=== PATIENT | male | born 1980 | race Caucasian/White ===

== ENCOUNTER 2016-04-20 10:04 | Outpatient (CLI) | payer MEDICAID | END 2016-04-20 10:05 | DX: Z13.9 Encounter for screening, unspecified (principal) ==

== ENCOUNTER 2016-11-15 16:44 | Emergency (ER) | payer SELFPAY ==
--- NOTE | 2016-11-15 19:22 | ED Physician Documentation ---
PD HPI MHE - Stated complaint Stated Complaint: ANXIETY - Chief complaint Chief Complaint: MHE - History obtained from History obtained from: Patient - History of Present Illness Primary symptom: Anxiety. No: Suicidal ideation, Psychosis, Depression, Aggressive behavior Timing - onset: Today (awoke from nap and got anxious. This continues. Has had anxiety in the past and usually it will fade with just resting. Consider use of anti-anxiety med.) Contributing factors: Money. 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.) PD PAST MEDICAL HISTORY - Past Medical History Cardiovascular: None Respiratory: None Neuro: None Endocrine/Autoimmune: None GI: GERD : None HEENT: None Psych: Anxiety Musculoskeletal: None Derm: None - Past Surgical History Past Surgical History: Yes General: Appendectomy - Present Medications Home Medications: Ambulatory Orders Medication Instructions Recorded Confirmed Lorazepam [Ativan] 1 mg PO BID #20 tablet 11/15/16 Sertraline HCl [Zoloft] 100 mg PO DAILY #30 tablet 11/15/16 - Allergies Allergies/Adverse Reactions: Allergies Allergy/AdvReac Type Severity Reaction Status Date / Time No Known Drug Allergies Allergy Verified 04/17/13 20:45 - Social History Does the pt smoke?: Yes Smoking Status: Current every day smoker Does the pt drink ETOH?: Yes Does the pt have substance abuse?: No Substance Use and Type: Marijuana - Immunizations Immunizations are current?: Yes - POLST Patient has POLST: No PD ED PE NORMAL - Vitals Vital signs reviewed: Yes - General General: Alert and oriented X 3, No acute distress, Well developed/nourished - HEENT HEENT: Atraumatic, Moist mucous membranes, Pharynx benign - Neck Neck: Supple, no meningeal sign, No adenopathy, No JVD - Cardiac Cardiac: RRR, No murmur - Respiratory Respiratory: No respiratory distress, Clear bilaterally - Abdomen Abdomen: Normal bowel sounds, Soft, Non tender, Non distended - Derm Derm: Normal color, Warm and dry - Extremities Extremities: No deformity, No tenderness to palpate, Normal ROM s pain, No edema , No calf tenderness / cord - Neuro Neuro: Alert and oriented X 3, No motor deficit, Normal speech Results - Vitals Vitals: Oxygen O2 Source Room air - Labs Labs: Laboratory Tests 11/15/16 11/15/16 11/15/16 19:44 19:44 19:44 WBC 12.3 H RBC 5.35 Hgb 15.4 Hct 45.5 MCV 85.0 MCH 28.8 MCHC 33.9 RDW 13.2 Plt Count 207 MPV 8.0 Neut # 8.9 H Lymph # 2.6 Hunt # 0.7 Eos # 0.0 Baso # 0.1 Absolute Nucleated RBC 0.01 Nucleated RBC % 0.0 Sodium 137 Potassium 3.7 Chloride 104 Carbon Dioxide 23 Anion Gap 10.0 BUN 12 Creatinine 0.9 Estimated GFR (MDRD) 97 Glucose 94 Calcium 9.1 Total Bilirubin 0.7 AST 16 ALT 16 Alkaline Phosphatase 83 Total Protein 7.1 Albumin 4.4 Globulin 2.7 Albumin/Globulin Ratio 1.6 Lipase 21 L TSH 2.87 PD MEDICAL DECISION MAKING - ED course Complexity details: reviewed results, considered differential, d/w patient Departure - Departure Disposition: 01 Home, Self Care Clinical Impression: Anxiety as acute reaction to exceptional stress Condition: Stable Record reviewed to determine appropriate education?: Yes Instructions: ED Stress React Follow-Up: [facility] [Provider Group] [facility] [Provider Group] Prescriptions: Lorazepam [Ativan] 1 mg PO BID #20 tablet Sertraline HCl [Zoloft] 100 mg PO DAILY #30 tablet Comments: Ativan twice daily initially to help with anxiety. This is not the long-term treatment but a bridge until the longer medications can help. Start Zoloft half a tablet daily for a week and then go to a whole tablet. We will presume to use this for 3-6 months. As a longer term treatment for the anxiety. However obtain an appointment with the local provider such as a [facility] He can also get psychological counseling to help with feedback and stress reduction techniques through [facility] or [facility] mental [facility] clinic in [place]. Discharge Date/Time: 11/15/16 21:08
[2016-11-15] MEDS ORDERED: LORazepam 0.5 MG TABLET PO STA (19:36)
[2016-11-15] MEDS ORDERED: LORazepam 0.5 MG TABLET ONE (19:43)
[2016-11-15 19:51] LABS: BASOPHILS # (AUTO) 0.1 10^3/uL (0.0-0.1); BASOPHILS % (AUTO) 0.5 %; EOSINOPHILS % (AUTO) 0.4 %; HCT - HEMATOCRIT 45.5 % (42.0-52.0); HGB - HEMOGLOBIN 15.4 g/dL (14.0-18.0); LYMPHOCYTES # (AUTO) 2.6 10^3/uL (1.5-3.5); LYMPHOCYTES % (AUTO) 20.9 %; MEAN CORPUSCULAR HEMOGLOBIN 28.8 pg (27.0-31.0); MEAN CORPUSCULAR HGB CONC 33.9 g/dL (32.0-36.0); MONOCYTES # (AUTO) 0.7 10^3/uL (0.0-1.0); MONOCYTES % (AUTO) 5.9 %; NEUTROPHILS # (AUTO) 8.9 10^3/uL (1.5-6.6); NEUTROPHILS % (AUTO) 72.3 %; RED BLOOD COUNT 5.35 10^6/uL (4.70-6.10); RED CELL DISTRIBUTION WIDTH 13.2 % (12.0-15.0); UNCORRECTED WHITE BLOOD COUNT 12.3 x10^3/uL; WHITE BLOOD COUNT 12.3 x10^3/uL (4.8-10.8)
[2016-11-15 20:01] LABS: ALBUMIN/GLOBULIN RATIO 1.6 (1.0-2.2); BILIRUBIN,TOTAL 0.7 mg/dL (0.2-1.0); CALCIUM 9.1 mg/dL (8.5-10.3); CREATININE 0.9 mg/dL (0.6-1.2); POTASSIUM 3.7 mmol/L (3.5-5.0); TOTAL PROTEIN 7.1 g/dL (6.7-8.2)
[2016-11-15 21:08] VITALS: BP 135/78
== END 2016-11-15 21:08 | disposition home or self-care (01) ==
LOC: ED 16:44
DX: F41.8 Other specified anxiety disorders (principal); F43.0 Acute stress reaction; K21.9 Gastro-esophageal reflux disease without esophagitis; F17.200 Nicotine dependence, unspecified, uncomplicated
CPT/HCPCS: 36415; 80053; 83690; 84443; 85025; 93005; 99283; A9270

== ENCOUNTER 2017-08-22 15:39 | Emergency (ER) | payer OTHER, MEDICAID ==
[2017-08-22 15:45] VITALS: BP 148/106
[2017-08-22] MEDS ORDERED: BUFFERED LIDOCAINE 10 ML SYRINGE SUBQ STA ×2 (16:41)
--- NOTE | 2017-08-22 16:44 | ED Physician Documentation ---
PD HPI UPPER EXT INJURY - Stated complaint Stated Complaint: L THUMB LAC - Chief complaint Chief Complaint: Laceration - History obtained from History obtained from: Patient - History of Present Illness Location: Left, Finger (thumb) Type of injury: Laceration Where injury occurred: Work Timing - onset: Today Timing - duration: Hours Timing - details: Abrupt onset, Still present Improved by: Rest, Immobilization Worsened by: Moving, Palpating Associated symptoms: No: Weakness, Numbness Contributing factors: No: Anticoagulated Similar symptoms before: Diagnosis (laceration) Recently seen: Not recently seen - Additonal information Additional information: 37-year-old male was getting ready to cut a bevel in an angle iron and pushed it up against the machine and it slipped out of his hand and sliced his left thumb. Review of Systems Constitutional: denies: Fever Eyes: denies: Decreased vision Ears: denies: Ear pain Nose: denies: Congestion Throat: denies: Sore throat Respiratory: denies: Cough GI: denies: Vomiting Skin: reports: Laceration (s) Musculoskeletal: reports: Extremity pain. denies: Neck pain, Back pain PD PAST MEDICAL HISTORY - Past Medical History Cardiovascular: None Respiratory: None Endocrine/Autoimmune: None GI: GERD : None HEENT: None Psych: Anxiety Musculoskeletal: None Derm: None - Past Surgical History Past Surgical History: Yes General: Appendectomy - Present Medications Home Medications: Ambulatory Orders Medication Instructions Recorded Confirmed Citalopram [CeleXA] 08/22/17 - Allergies Allergies/Adverse Reactions: Allergies Allergy/AdvReac Type Severity Reaction Status Date / Time No Known Drug Allergies Allergy Verified 08/22/17 15:45 - Social History Does the pt smoke?: Yes Smoking Status: Current every day smoker Does the pt drink ETOH?: Yes Does the pt have substance abuse?: No - Immunizations Immunizations are current?: Yes - POLST Patient has POLST: No PD ED PE NORMAL - Vitals Vital signs reviewed: Yes (hypertensive ) - General General: Alert and oriented X 3, No acute distress, Well developed/nourished - HEENT HEENT: Atraumatic, PERRL, EOMI - Neck Neck: Supple, no meningeal sign - Respiratory Respiratory: No respiratory distress - Derm Derm: Normal color, Warm and dry, No rash - Extremities Extremities: No deformity, No edema, Other (over the ulnar aspect of the left thumb there is a 3cm laceration from just proximal to the IP joint to the cuticle of the thumbnail. The nail is not involved an the distal n/v is intact and there is full ROM of each joint. ) - Neuro Neuro: Alert and oriented X 3, No motor deficit, No sensory deficit, Normal speech Eye Opening: Spontaneous Motor: Obeys Commands Verbal: Oriented GCS Score: 15 - Psych Psych: Normal mood, Normal affect Results - Vitals Vitals: Vital Signs - 24 hr 08/22/17 15:42 Temperature 36.4 C L Heart Rate 88 Respiratory 20 Rate Blood Pressure 148/106 H O2 Saturation 97 Oxygen O2 Source Room air Procedures - Laceration (location) left thumb Length in cm: 3 Wound type: Irregular, Flap, Clean Neurovascular status: Sensory intact, Motor intact, Vascular intact Anesthesia: Lidocaine 1%, With bicarb Wound Preparation: Hibiclens, Irrigated copiously NS, Wound explored, To the base Skin layer closure: Nylon, Interrupted, Size #-0 - enter number (4-0) Other: Patient tolerated well, No complications, Neurovascular intact, Dressing applied, Tetanus UTD PD MEDICAL DECISION MAKING - ED course Complexity details: re-evaluated patient, considered differential, d/w patient ED course: 37-year-old male with a laceration to the left thumb has good range of motion with the joint and has some macerated tissue with this laceration. This is numbed cleansed and sutured. - Sepsis Event Vital Signs: Vital Signs - 24 hr 08/22/17 15:42 Temperature 36.4 C L Heart Rate 88 Respiratory 20 Rate Blood Pressure 148/106 H O2 Saturation 97 Oxygen O2 Source Room air Departure - Departure Disposition: 01 Home, Self Care Clinical Impression: Thumb laceration Qualifiers: Encounter type: initial encounter Damage to nail status: without damage Foreign body presence: without foreign body Laterality: left Qualified Code(s): S61.012A - Laceration without foreign body of left thumb without damage to nail , initial encounter Condition: Stable Instructions: ED Laceration Hand Follow-Up: [facility] [Provider Group] Comments: sutures should be removed in 10 days Forms: Activity restrictions
== END 2017-08-22 17:15 | disposition home or self-care (01) ==
LOC: ED 15:39
DX: S61.012A Laceration without foreign body of left thumb without damage to nail, initial encounter (principal); W26.8XXA Contact with other sharp object(s), not elsewhere classified, initial encounter; Y92.69 Other specified industrial and construction area as the place of occurrence of the external cause; Y99.0 Civilian activity done for income or pay; F17.200 Nicotine dependence, unspecified, uncomplicated; R03.0 Elevated blood-pressure reading, without diagnosis of hypertension
CPT/HCPCS: 1040M; 12002; 99282; 99283

== ENCOUNTER 2021-12-12 12:56 | Emergency (ER) | payer MEDICAID ==
[2021-12-12 13:03] VITALS: BP 148/90
[2021-12-12] MEDS ORDERED: cefTRIAXone 1 GM VIAL IM STA (13:09)
[2021-12-12] MEDS ORDERED: LIDOCAINE 1% 2 ML VIAL MC ONE (13:09)
--- NOTE | 2021-12-12 13:13 | ED Physician Documentation ---
History of Present Illness - Stated complaint Stated Complaint: RT SIDE FACE SWELLING - Chief complaint Chief Complaint: Heent - History obtained from History obtained from: Patient - History of Present Illness Timing: Today Pain level max: 6 Pain level now: 6 - Additonal information Additional information: Patient is a 41-year-old male who presents to the emergency department with right upper dental pain. He states is been ongoing for several weeks. He is scheduled to have a tooth extraction in 10 days. No fevers. No chills. Noted swelling to the face last night and this morning. Better with Motrin, worse with eating and drinking. No difficulty speaking or swallowing. Review of Systems Constitutional: denies: Fever, Chills GI: denies: Vomiting, Diarrhea Skin: denies: Rash PD PAST MEDICAL HISTORY - Past Medical History Cardiovascular: None Respiratory: None Neuro: None Endocrine/Autoimmune: None GI: GERD : None HEENT: None Psych: Anxiety Musculoskeletal: None Derm: None - Past Surgical History Past Surgical History: Yes General: Appendectomy - Present Medications Home Medications: Ambulatory Orders Medication Instructions Recorded Confirmed clindamycin HCL [Cleocin HCl] 300 mg PO Q6H #40 cap 12/12/21 - Allergies Allergies/Adverse Reactions: Allergies Allergy/AdvReac Type Severity Reaction Status Date / Time dextromethorphan AdvReac Unknown Verified 12/12/21 13:04 - Social History Does the pt smoke?: Yes Smoking Status: Current every day smoker Does the pt drink ETOH?: Yes Does the pt have substance abuse?: No - Immunizations Immunizations are current?: Yes - POLST Patient has POLST: No PD ED PE NORMAL - Vitals Vital signs reviewed: Yes - General General: Alert and oriented X 3, No acute distress, Well developed/nourished - HEENT HEENT: PERRL, Moist mucous membranes, Other (poor dentition, There are multiple dental caries. No drainable abscess. Normal phonation. No trismus. There is mild right upper facial swelling.) - Cardiac Cardiac: RRR, No murmur - Respiratory Respiratory: No respiratory distress, Clear bilaterally - Derm Derm: Warm and dry - Neuro Neuro: Alert and oriented X 3 - Psych Psych: Normal mood, Normal affect Results - Vitals Vitals: Vital Signs - 24 hr 12/12/21 13:02 Temperature 36.8 C Heart Rate 80 Respiratory 14 Rate Blood Pressure 148/90 H O2 Saturation 98 Oxygen O2 Source Room air PD MEDICAL DECISION MAKING - ED course Complexity details: reviewed results, re-evaluated patient, considered differential, d/w patient ED course: 41-year-old male with dental caries leading to mild facial cellulitis. We will start on antibiotics and have him follow-up with his dentist on Tuesday. [place] the patient was given a dose of intramuscular Rocephin here in case the pharmacies are having issues filling prescriptions today. Patient declines anything for pain. Patient counseled regarding signs and symptoms for which I believe and urgent re-evaluation would be necessary. Patient with good understanding of and agreement to plan and is comfortable going home at this time This document was made in part using voice recognition software. While efforts are made to proofread this document, sound alike and grammatical errors may occur. Departure - Departure Disposition: 01 Home, Self Care Clinical Impression: Dental caries, Facial cellulitis Condition: Good Instructions: ED Tooth Pain, ED Cellulitis Facial Follow-Up: your,doctor on Tuesday [Other] Prescriptions: clindamycin HCL [Cleocin HCl] 300 mg PO Q6H #40 cap Comments: Your prescriptions were sent to [facility] in [place]. Please take all antibiotics until gone. Please follow-up with your dentist for further care. Please return if you worsen.
== END 2021-12-12 13:42 | disposition home or self-care (01) ==
LOC: ED 12:56
DX: K02.9 Dental caries, unspecified (principal); L03.211 Cellulitis of face; F17.200 Nicotine dependence, unspecified, uncomplicated
CPT/HCPCS: 96372; 99283; 99284

== ENCOUNTER 2022-07-14 13:31 | Emergency (ER) | payer MEDICAID ==
[2022-07-14 13:42] VITALS: BP 142/81
--- NOTE | 2022-07-14 14:39 | ED Physician Documentation ---
PD HPI HEENT - Stated complaint Stated Complaint: CONGESTION,EAR PRESSURE - Chief complaint Chief Complaint: Heent - History obtained from History obtained from: Patient (About a weeks worth of bilateral ear pressure, right greater than left with some congestion as well. No fevers.) PD PAST MEDICAL HISTORY - Past Medical History Cardiovascular: None Respiratory: None Neuro: None Endocrine/Autoimmune: None GI: GERD : None HEENT: None Psych: Anxiety Musculoskeletal: None Derm: None - Past Surgical History Past Surgical History: Yes General: Appendectomy - Present Medications Home Medications: Ambulatory Orders Medication Instructions Recorded Confirmed Amox/Clav 875/125 [Augmentin] 1 each PO Q12H #20 tablet 07/14/22 - Allergies Allergies/Adverse Reactions: Allergies Allergy/AdvReac Type Severity Reaction Status Date / Time dextromethorphan AdvReac Unknown Verified 07/14/22 13:41 - Social History Does the pt smoke?: Yes Smoking Status: Current every day smoker Does the pt drink ETOH?: Yes Does the pt have substance abuse?: No - Immunizations Immunizations are current?: Yes - POLST Patient has POLST: No PD ED PE NORMAL - Vitals Vital signs reviewed: Yes - General General: Alert and oriented X 3, No acute distress - HEENT HEENT: Pharynx benign, Other (Bilateral otitis media) - Neck Neck: Supple, no meningeal sign, No bony TTP - Cardiac Cardiac: RRR, No murmur - Respiratory Respiratory: No respiratory distress, Clear bilaterally - Abdomen Abdomen: Non tender - Neuro Neuro: Alert and oriented X 3, Normal speech Results - Vitals Vitals: Vital Signs - 24 hr 07/14/22 13:36 Temperature 36.5 C Heart Rate 91 Respiratory 19 Rate Blood Pressure 142/81 H O2 Saturation 99 Oxygen O2 Source Room air Departure - Departure Disposition: Home, Self Care Clinical Impression: Bilateral otitis media Condition: Good Record reviewed to determine appropriate education?: Yes Instructions: ED Otitis Media Acute Adult Prescriptions: Amox/Clav 875/125 [Augmentin] 1 each PO Q12H #20 tablet Comments: I sent your prescription electronically to [facility] in [place]. Follow-up with your doctor in a week for recheck. Return for new or worsening symptoms.
== END 2022-07-14 14:45 | disposition home or self-care (01) ==
LOC: ED 13:31
DX: H66.93 Otitis media, unspecified, bilateral (principal); F17.200 Nicotine dependence, unspecified, uncomplicated
CPT/HCPCS: 99282; 99283

== ENCOUNTER 2023-08-10 11:47 | Emergency (ER) | payer BC, MEDICAID ==
[2023-08-10 12:36] LABS: BASOPHILS % (AUTO) 0.3 %; EOSINOPHILS # (AUTO) 0.1 10^3/uL (0.0-0.7); EOSINOPHILS % (AUTO) 0.8 %; HCT - HEMATOCRIT 46.2 % (42.0-52.0); HGB - HEMOGLOBIN 15.3 g/dL (14.0-18.0); LYMPHOCYTES # (AUTO) 1.4 10^3/uL (1.5-3.5); LYMPHOCYTES % (AUTO) 23.9 %; MEAN CORPUSCULAR HGB CONC 33.1 g/dL (32.0-36.0); MEAN CORPUSCULAR VOLUME 84.6 fL (80.0-94.0); MEAN PLATELET VOLUME 9.9 fL (7.4-11.4); MONOCYTES # (AUTO) 0.4 10^3/uL (0.0-1.0); MONOCYTES % (AUTO) 6.7 %; NEUTROPHILS % (AUTO) 68.1 %; PLT - PLATELET COUNT 225 10^3/uL (130-450); RED BLOOD COUNT 5.46 10^6/uL (4.70-6.10); RED CELL DISTRIBUTION WIDTH 11.9 % (12.0-15.0); WHITE BLOOD COUNT 5.9 x10^3/uL (4.8-10.8)
--- NOTE | 2023-08-10 12:54 | XRAY Report ---
PROCEDURE: Chest 1V INDICATIONS: Chest pain TECHNIQUE: One view of the chest was acquired. COMPARISON: None. FINDINGS: Surgical changes and devices: None. Lungs and pleura: No pleural effusions or pneumothorax. Lungs are clear. Mediastinum: Mediastinal contours appear normal. Heart size is normal. Bones and chest wall: No suspicious bony lesions. Overlying soft tissues appear unremarkable. IMPRESSION: No acute cardiopulmonary process. Reviewed by: Carlos Hager MD on 08/10/2023 12:52 PM PDT Approved by: Carlos Hager MD on 08/10/2023 12:52 PM PDT Station ID: [id number]
[2023-08-10 13:02] LABS: TROPONIN I HIGH SENSITIVITY 3.7 ng/L (2.3-19.7)
[2023-08-10 13:03] LABS: ALBUMIN 4.3 g/dL (3.2-5.5); ALBUMIN/GLOBULIN RATIO 1.5 (1.0-2.2); BILIRUBIN,TOTAL 0.8 mg/dL (0.2-1.0); CALCIUM 9.6 mg/dL (8.5-10.3); CREATININE 1.1 mg/dL (0.6-1.3); POTASSIUM 4.2 mmol/L (3.5-4.5); TOTAL PROTEIN 7.2 g/dL (6.4-8.9)
--- NOTE | 2023-08-10 13:45 | ED Physician Documentation ---
History of Present Illness - Stated complaint Stated Complaint: HEART PALPITATIONS - Chief complaint Chief Complaint: Cardiac - History obtained from History obtained from: Patient - History of Present Illness Timing: How many weeks ago (several weeks) Pain level max: 0 Pain level now: 0 - Additonal information Additional information: 43-year-old male presents to the emergency department stating that he has had intermittent palpitations for the past several months. He states that they last for a few seconds at a time. He states he has been to several emergency departments with no cause found. He states that 1 time he was told he had atrial fibrillation but has never been told this again. He is currently asymptomatic. He states that it seems to happen when he is stressed or at work. No fevers. No chills. No cough. No congestion. No nausea or vomiting. No abdominal pain. No chest pain. Occasionally will feel like his heart races or like his heart "skips a beat". Has an appointment with his doctor next week. Review of Systems Constitutional: denies: Fever, Chills Respiratory: denies: Cough GI: denies: Vomiting, Diarrhea Skin: denies: Rash Musculoskeletal: denies: Neck pain, Back pain PD PAST MEDICAL HISTORY - Past Medical History Cardiovascular: None Respiratory: None Neuro: None Endocrine/Autoimmune: None GI: GERD : None HEENT: None Psych: Anxiety Musculoskeletal: None Derm: None - Past Surgical History Past Surgical History: Yes General: Appendectomy - Present Medications Home Medications: Ambulatory Orders Medication Instructions Recorded Confirmed No Known Home Medications 08/10/23 08/10/23 - Allergies Allergies/Adverse Reactions: Allergies Allergy/AdvReac Type Severity Reaction Status Date / Time dextromethorphan AdvReac Unknown Verified 08/10/23 11:59 - Social History Does the pt smoke?: Yes Smoking Status: Current every day smoker Does the pt drink ETOH?: Yes Does the pt have substance abuse?: No - Immunizations Immunizations are current?: Yes - POLST Patient has POLST: No PD ED PE NORMAL - Vitals Vital signs reviewed: Yes - General General: Alert and oriented X 3, No acute distress - HEENT HEENT: Moist mucous membranes - Neck Neck: Supple, no meningeal sign - Cardiac Cardiac: RRR, No murmur, Strong equal pulses - Respiratory Respiratory: No respiratory distress, Clear bilaterally - Abdomen Abdomen: Soft, Non tender, Non distended - Derm Derm: Warm and dry - Extremities Extremities: No edema, No calf tenderness / cord - Neuro Neuro: Alert and oriented X 3 - Psych Psych: Normal mood, Normal affect Results - Vitals Vitals: Oxygen O2 Source Room air - EKG (time done) 1157 EKG releavant findings:: EKG personally interpreted by author of this note. Relevant findings are: Rate: Rate (enter#) (70) Rhythm: NSR [place]: Normal Intervals: Normal [place] QRS: Normal Ischemia: ST elevation c/w repol - Labs Labs: Laboratory Tests 08/10/23 08/10/23 12:30 12:30 WBC 5.9 RBC 5.46 Hgb 15.3 Hct 46.2 MCV 84.6 MCH 28.0 MCHC 33.1 RDW 11.9 L Plt Count 225 MPV 9.9 Neut # (Auto) 4.0 Lymph # (Auto) 1.4 L [place] # (Auto) 0.4 Eos # (Auto) 0.1 Baso # (Auto) 0.0 Absolute Nucleated RBC 0.00 Nucleated RBC % 0.0 Sodium 135 Potassium 4.2 Chloride 102 Carbon Dioxide 29 Anion Gap 4.0 L BUN 14 Creatinine 1.1 Estimated GFR (MDRD) 74 L Glucose 106 H Calcium 9.6 Total Bilirubin 0.8 AST 18 ALT 27 Alkaline Phosphatase 88 Troponin I High Sens 3.7 Total Protein 7.2 Albumin 4.3 Globulin 2.9 Albumin/Globulin Ratio 1.5 Lipase 18 - Rads (name of study) cxr Relevant Findings:: Final report received, See rad report PD Medical Decision Making - ED course Complexity details: reviewed results, considered differential (No ST elevation [place], no aortic dissection, no PE, no tension pneumothorax, no aortic aneurysm), d/w patient ED course: Patient with intermittent palpitations. Asymptomatic here. No acute findings on laboratory testing, EKG, chest x-ray. He is very well-appearing, nontoxic. Afebrile. Recommend that he follow-up with his PCP for cardiac monitoring. Patient counseled regarding signs and symptoms for which I believe and urgent re-evaluation would be necessary. Patient with good understanding of and agreement to plan and is comfortable going home at this time This document was made in part using voice recognition software. While efforts are made to proofread this document, sound alike and grammatical errors may oc cur. Departure - Departure Disposition: 01 Home, Self Care Clinical Impression: Palpitations, Dehydration Condition: Good Instructions: ED Dehydration, ED Palpitations Follow-Up: your,doctor as scheduled [Other] Comments: Your laboratory testing does not show any acute abnormalities today. Your EKG and chest x-ray do not show any significant abnormalities. When we moved you from a lying position to standing your heart rate increased from the low 60s up to the upper 80s. Please make sure you are drinking plenty of fluids, adding electrolytes to water will help as well. It is recommended that you have a Holter monitor or Zio patch with your doctor to evaluate for any potential arrhythmias that could be causing your palpitations. Please return if you worsen. Forms: PCP List Discharge Date/Time: 08/10/23 14:23
[2023-08-10 14:28] VITALS: BP 120/79; O2SAT 98
== END 2023-08-10 14:23 | disposition home or self-care (01) ==
LOC: ED 11:47
DX: R00.2 Palpitations (principal); E86.0 Dehydration; F17.200 Nicotine dependence, unspecified, uncomplicated
CPT/HCPCS: 36415; 80053; 83690; 84484; 85025; 93005; 99283; 99284

== ENCOUNTER 2023-08-22 12:12 | Outpatient (CLI) | payer BC ==
[2023-08-22 18:03] LABS: CHOL/HDL RATIO 4.3 (<5.0); CHOLESTEROL 171 mg/dL; HDL CHOLESTEROL 40 mg/dL; LDL CHOLESTEROL,CALCULATED 101 mg/dL; LDL/HDL RATIO 2.5 (<3.6); TRIGLYCERIDES 149 mg/dL; VLDL CHOLESTEROL 30 mg/dL
[2023-08-22 18:21] LABS: THYROID STIMULATING HORMONE 4.25 uIU/mL (0.34-5.60)
[2023-08-22 22:34] LABS: ESTIMATED AVERAGE GLUCOSE 108 mg/dL (70-100); HEMOGLOBIN A1c% 5.4 % (4.27-6.07)
== END 2023-08-22 12:13 | disposition home or self-care (01) ==
LOC: LAB.N 12:12
DX: R00.2 Palpitations (principal)
CPT/HCPCS: 36415; 80061; 83036; 83721; 84443